=== PATIENT | female | born 1975 | race Native Hawaiian/Other Pacific Islander ===

== ENCOUNTER 2017-12-19 13:47 | Emergency (ER) | payer OTHER ==
[~2017-12-19] VITALS: Ht 154.9 cm; Wt 57.8 kg
[2017-12-19 13:51] VITALS: BP 131/74; PULSE 81; TEMP 36.3; O2SAT 100; Ht 154.9 cm; Wt 57.8 kg
[2017-12-19] MEDS ORDERED: MULT-603 PO (14:07)
--- NOTE | 2017-12-19 14:07 | EMERGENCY ROOM VISIT NOTE ---
ED Visit Note First contact with patient: 13:54 CHIEF COMPLAINT: Tick bite HISTORY OF PRESENT ILLNESS: This 42-year-old female patient presents to the emergency department ambulatory complaining of a tick bite to the abdomen. The patient and has been report [place] she first noticed the tick this morning while she was showering. The patient believes that the tick has been in place for greater than 24 hours. They have attempted to remove the tick at home with tweezers but believe that part of the tick is still in the abdomen. They complain of 5/10 pain in the area of the tick bite. The patient denies any redness, swelling or drainage from the area. They deny any rashes, fevers or joint pain. REVIEW OF SYSTEMS: A review of systems was performed with positives and pertinent negatives listed in the history of present illness. All other systems were reviewed and are negative. ALLERGIES: No known drug allergies MEDICATIONS: Daily multivitamin PMH: No significant past medical history SOCIAL HISTORY: The patient lives locally with her family. PHYSICAL EXAM: VITALS: Vitals are noted on the nurse's note and reviewed by myself. Vital signs stable. GENERAL: This is a 42-year-old female, in no acute distress, nondiaphoretic, well-developed well-nourished. SKIN: There is a small area of erythema with a small central black foreign body just inferior to the umbilicus. No significant surrounding erythema or edema. EMERGENCY DEPARTMENT COURSE: The patient was seen and examined as above. Forceps were used to remove a small piece of tick that was embedded into the abdomen. Bacitracin and bandage were applied over top of this. The patient was given a one-time dose of 200 mg doxycycline for Lyme prophylaxis. Conservative care measures were discussed with the patient. The patient was discharged home in good condition. DIAGNOSIS: Tick bite Current/Historical Medications Scheduled Multiple Vitamins W/ Minerals (Womens Multi Vitamin & Mi), 1 TAB PO DAILY Allergies Coded Allergies: No Known Allergies (Unverified , 12/19/17) Vital Signs Date Time Temp Pulse Resp B/P (MAP) Pulse Ox O2 Delivery O2 Flow Rate FiO2 12/19/17 13:51 36.3 81 20 131/74 100 Room Air Medications Administered Medications (Trade) Dose Ordered Sig/Bogdan Route Start Time Stop Time Status Last Admin Dose Admin Doxycycline Hyclate (Vibramycin Cap) 200 mg ONE ONCE PO 12/19/17 14:15 12/19/17 14:16 DC 12/19/17 14:23 200 MG Departure Information Impression Primary Impression: Tick bite Dispostion Home / Self-Care Condition GOOD Patient Instructions My [facility] Additional Instructions Proper wound care is essential for adequate wound healing and infection prevention. You can shower and clean the wound with soap and water. Do not scour over the wound, pat dry with a towel. Do not submerse the wound (i.e. bathe or dish wash) until the wound has fully healed. You can use an antibiotic ointment with a dressing over the wound for the next 3-4 days. After this time you may leave the wound dry and open to the air. Follow-up with your primary care provider as needed. If you have any tick bites in the future, you may remove them using the tick twister. Return to the emergency department with any significant redness/swelling around the wound, fevers, or other new/concerning symptoms. Problem Qualifiers Primary Impression: Tick bite Encounter type: initial encounter Qualified Codes: W57.XXXA - Bitten or stung by nonvenomous insect and other nonvenomous arthropods, initial encounter
[2017-12-19] MEDS ORDERED: DOXYCYCLINE HYCLATE 100 MG CAP PO ONE (14:15)
== END 2017-12-19 14:25 | disposition home or self-care (01) ==
LOC: C.EDB 13:48 → C.EDD 14:25
DX: S30.861A Insect bite (nonvenomous) of abdominal wall, initial encounter (principal); W57.XXXA Bitten or stung by nonvenomous insect and other nonvenomous arthropods, initial encounter; Y92.821 Forest as the place of occurrence of the external cause